=== PATIENT | female | born 1985 | race Caucasian/White ===

== ENCOUNTER → 2018-05-30 | Outpatient (CLI) | payer OTHER ==
[~2018-05-30] MED LIST: ALPR-445 PO; ALPR-460 PO; CLIN30GE15 TP; LEVO1TBD PO; LEVO25TA61 PO; LEVO50TA86 PO; LEVO75TA73 PO; MINO100T8 PO; PARO-242 PO; SERT-184 PO; TRET20CR34 TP; TRET45CR28 TP; TRIA15CR40 TP; VALA100059 PO
[2018-05-30 10:49] LABS: PLATELET COUNT, AUTOMATED 225 K/uL (150-450)
[2018-05-30 11:59] LABS: LDL CHOLESTEROL 24 mg/dl
== END ==
LOC: LAB 10:35
PROVIDERS: ATTEND Internal Medicine
DX: F41.8 Other specified anxiety disorders (principal); E03.9 Hypothyroidism, unspecified
CPT/HCPCS: 36415; 82040; 82247; 82310; 82374; 82435; 82465; 82565; 82947; 83718; 84075; 84132; 84155; 84295; 84443; 84450; 84460; 84478; 84520; 85025

== ENCOUNTER → 2018-08-29 | Outpatient (CLI) | payer OTHER ==
[2018-08-29 09:22] LABS: PLATELET COUNT, AUTOMATED 253 K/uL (150-450)
[2018-08-29 09:31] LABS: LDL CHOLESTEROL 50 mg/dl
== END ==
LOC: LAB 09:03
PROVIDERS: ATTEND Internal Medicine
DX: Z00.00 Encounter for general adult medical examination without abnormal findings (principal)
CPT/HCPCS: 36415; 82040; 82247; 82310; 82374; 82435; 82465; 82565; 82947; 83718; 84075; 84132; 84155; 84295; 84443; 84450; 84460; 84478; 84520; 85025